=== PATIENT | female | born 1980 | race Native Hawaiian/Other Pacific Islander ===

== ENCOUNTER 2017-03-16 18:52 | Emergency (ER) | payer OTHER ==
[~2017-03-16] VITALS: Ht 154.9 cm; Wt 53.5 kg
[2017-03-16 19:52] LABS: PLATELET COUNT 293 K/uL (152-353)
[2017-03-16 19:59] LABS: POTASSIUM 3.3 mmol/L (3.6-5.2); SODIUM 136 mmol/L (136-145)
[2017-03-16 20:33] VITALS: BP 122/79; TEMP 98.2
== END 2017-03-16 20:35 | disposition home or self-care (01) ==
LOC: ED 18:52
DX: F19.10 Other psychoactive substance abuse, uncomplicated (principal); R10.9 Unspecified abdominal pain
CPT/HCPCS: 80053; 80307; 81000; 85027; 99283; G0479

== ENCOUNTER 2017-03-18 16:23 | Emergency (ER) | payer OTHER ==
[~2017-03-18] VITALS: Ht 154.9 cm; Wt 53.1 kg
[2017-03-18 19:05] VITALS: BP 122/91; TEMP 98.6
== END 2017-03-18 19:05 | disposition home or self-care (01) ==
LOC: ED 16:23
DX: S51.812A Laceration without foreign body of left forearm, initial encounter (principal)
CPT/HCPCS: 99283

== ENCOUNTER 2017-03-21 11:41 | Outpatient (CLI) | payer OTHER | END 2017-03-21 11:45 | disposition short-term general hospital (02) | LOC: AMB 11:41 | DX: R45.851 Suicidal ideations (principal) | CPT/HCPCS: A0425; A0429 ==

== ENCOUNTER 2017-03-21 11:49 | Emergency (ER) | payer OTHER ==
[~2017-03-21] VITALS: Ht 160 cm; Wt 54.4 kg
[2017-03-21 13:21] LABS: PLATELET COUNT 303 K/uL (152-353)
[2017-03-21 13:24] LABS: POTASSIUM 2.8 mmol/L (3.6-5.2); SODIUM 139 mmol/L (136-145)
[2017-03-22 17:27] VITALS: TEMP 98.5
[2017-03-23 11:33] VITALS: BP 122/82
== END 2017-03-23 12:17 | disposition other institution (70) ==
LOC: ED 11:49
DX: R45.851 Suicidal ideations (principal); F32.9 Major depressive disorder, single episode, unspecified; X78.9XXA Intentional self-harm by unspecified sharp object, initial encounter
CPT/HCPCS: 36415; 80053; 80307; 80320; 80329; 81000; 81025; 85027; 96372; 99285; G0479; J2060

== ENCOUNTER 2017-05-17 16:55 | Emergency (ER) | payer OTHER ==
[~2017-05-17] VITALS: Ht 154.9 cm; Wt 58.1 kg
[2017-05-17] MEDS ORDERED: HYDR50CA21 PO (17:12)
[2017-05-17] MEDS ORDERED: AMOXICILLIN250 M2 PO (17:12)
[2017-05-17 17:14] LABS: PLATELET COUNT 257 K/uL (152-353)
[2017-05-17 17:22] LABS: POTASSIUM 3.2 mmol/L (3.6-5.2); SODIUM 142 mmol/L (136-145)
[2017-05-17 22:36] VITALS: BP 129/91; TEMP 98.2
== END 2017-05-17 22:37 ==
LOC: ED 16:55
DX: N39.0 Urinary tract infection, site not specified (principal)
CPT/HCPCS: 36415; 80053; 81000; 85027; 87077; 87086; 87088; 87186; 96374; 99284; J2405; Q9963

== ENCOUNTER 2017-07-13 11:37 | Emergency (ER) | payer OTHER ==
[~2017-07-13] VITALS: Ht 154.9 cm; Wt 56.7 kg
[~2017-07-13 11:37] MED LIST: AMOXICILLIN250 M2 PO; HYDR50CA21 PO
[2017-07-13 11:50] VITALS: BP 145/95; TEMP 97.9
== END 2017-07-13 13:23 | disposition home or self-care (01) ==
LOC: ED 11:37
DX: L02.413 Cutaneous abscess of right upper limb (principal)
CPT/HCPCS: 99282

== ENCOUNTER 2017-09-11 15:01 | Emergency (ER) | payer OTHER ==
[~2017-09-11] VITALS: Ht 157.5 cm; Wt 61.7 kg
[2017-09-11 15:05] VITALS: TEMP 97.9
[2017-09-11 16:30] VITALS: BP 128/88
== END 2017-09-11 16:31 | disposition home or self-care (01) ==
LOC: ED 15:01
DX: L73.2 Hidradenitis suppurativa (principal); N23 Unspecified renal colic
CPT/HCPCS: 81000; 96372; 99283; J0696

== ENCOUNTER 2018-05-03 22:16 | Emergency (ER) | payer OTHER ==
[~2018-05-03] VITALS: Ht 154.9 cm; Wt 68.9 kg
[2018-05-04] VITALS: BP 140/91; TEMP 98.7
== END 2018-05-04 00:02 | disposition home or self-care (01) ==
LOC: ED 22:16
DX: S16.1XXA Strain of muscle, fascia and tendon at neck level, initial encounter (principal); M79.601 Pain in right arm; V40.1XXA Car passenger injured in collision with pedestrian or animal in nontraffic accident, initial encounter
CPT/HCPCS: 96372; 99283; J1885

== ENCOUNTER → 2018-05-03 | Outpatient (CLI) | payer OTHER | END | disposition short-term general hospital (02) | LOC: AMB 21:41 | DX: M54.2 Cervicalgia (principal); M25.511 Pain in right shoulder; V40.0XXA Car driver injured in collision with pedestrian or animal in nontraffic accident, initial encounter; Y92.488 Other paved roadways as the place of occurrence of the external cause | CPT/HCPCS: A0425; A0429 ==

== ENCOUNTER 2019-02-02 21:07 | Emergency (ER) | payer OTHER ==
[~2019-02-02] VITALS: Ht 154.9 cm; Wt 60.8 kg
[2019-02-02 22:29] LABS: PLATELET COUNT 277 K/uL (152-353)
[2019-02-02 22:40] LABS: POTASSIUM 4.2 mmol/L (3.6-5.2); SODIUM 141 mmol/L (136-145)
[2019-02-02 23:48] VITALS: BP 120/88; TEMP 97.5
== END 2019-02-02 23:50 | disposition home or self-care (01) ==
LOC: ED 21:07
PROVIDERS: Internal Medicine
DX: R51 Headache (principal); R07.89 Other chest pain
CPT/HCPCS: 36415; 80053; 82550; 84484; 85027; 93005; 96372; 99283; J2270; J2405

== ENCOUNTER 2019-03-01 18:47 | Observation (INO) | payer OTHER ==
[~2019-03-01] VITALS: Ht 154.9 cm; Wt 60.4 kg
[2019-03-01 19:14] VITALS: BP 106/85; TEMP 98.2
[2019-03-01 19:59] LABS: PLATELET COUNT 397 K/uL (152-353)
[2019-03-01 22:29] VITALS: BP 128/76; TEMP 98.8; Ht 154.9 cm; Wt 60.4 kg
[2019-03-02] VITALS (7 sets, daily range): BP systolic 102–128; BP diastolic 47–85; TEMP 97.5–98.9
[2019-03-02 10:47] LABS: PLATELET COUNT 259 K/uL (152-353)
[2019-03-02] MEDS ORDERED: SEROQUEL25 MG PO (10:55)
[2019-03-02] MEDS ORDERED: TRAMADOL HCL100 MG PO (10:55)
[2019-03-03 04:00] VITALS: BP 109/77; TEMP 98.2
[2019-03-03 05:28] LABS: PLATELET COUNT 259 K/uL (152-353)
[2019-03-03 08:00] VITALS: BP 110/80; TEMP 97.9
[2019-03-03 12:00] VITALS: BP 125/78; TEMP 98.3
== END 2019-03-03 15:40 | disposition home or self-care (01) ==
LOC: ED 18:47 → MED/SURG 21:26
PROVIDERS: Internal Medicine; ADMIT Emergency Medicine
DX: J16.8 Pneumonia due to other specified infectious organisms (principal); E87.6 Hypokalemia; R11.2 Nausea with vomiting, unspecified; R19.7 Diarrhea, unspecified; Z72.0 Tobacco use
CPT/HCPCS: 36415; 80048; 80053; 85007; 85027; 87502; 94664; 94760; 96365; 96366; 96367; 96375; 99220; 99284; G0378; J0696; J1956; J2405

== ENCOUNTER 2020-08-19 15:58 | Emergency (ER) | payer OTHER ==
[~2020-08-19] VITALS: Ht 154.9 cm; Wt 60.3 kg
[~2020-08-19 15:58] MED LIST changes: +SEROQUEL25 MG PO; +TRAMADOL HCL100 MG PO
[2020-08-19 19:10] VITALS: BP 148/100; TEMP 98.3
== END 2020-08-19 19:10 | disposition home or self-care (01) ==
LOC: ED 15:58
PROC: 2W3CX1Z Immobilization of Right Lower Arm using Splint (ICD-10-PCS; principal; 2020-08-19)
DX: S80.02XA Contusion of left knee, initial encounter (principal); I10 Essential (primary) hypertension; F17.210 Nicotine dependence, cigarettes, uncomplicated
CPT/HCPCS: 99283

== ENCOUNTER 2022-04-17 18:22 | Emergency (ER) | payer OTHER | END 2022-04-17 18:50 | disposition home or self-care (01) | LOC: ED 18:22 | DX: Z53.21 Procedure and treatment not carried out due to patient leaving prior to being seen by health care provider (principal) ==

== ENCOUNTER 2022-10-22 10:05 | Emergency (ER) | payer OTHER ==
[~2022-10-22] VITALS: Ht 154.9 cm; Wt 64.9 kg
[2022-10-22 10:33] VITALS: BP 128/86; TEMP 98.1
== END 2022-10-22 12:50 | disposition home or self-care (01) ==
LOC: ED 10:05
DX: R51.9 Headache, unspecified (principal); R53.1 Weakness; R82.5 Elevated urine levels of drugs, medicaments and biological substances
CPT/HCPCS: 80307; 99282

== ENCOUNTER 2022-12-23 15:21 | Emergency (ER) | payer OTHER ==
[~2022-12-23] VITALS: Ht 154.9 cm; Wt 63.5 kg
[2022-12-23 15:21] VITALS: TEMP 98.1
[2022-12-23 15:46] LABS: PLATELET COUNT 260 K/uL (152-353)
[2022-12-23 15:55] LABS: POTASSIUM 3.8 mmol/L (3.6-5.2)
[2022-12-23 17:17] VITALS: BP 140/91
== END 2022-12-23 17:22 | disposition home or self-care (01) ==
LOC: ED 15:21
PROVIDERS: Emergency Medicine
DX: K29.60 Other gastritis without bleeding (principal); F19.10 Other psychoactive substance abuse, uncomplicated
CPT/HCPCS: 36415; 80053; 80307; 81002; 85027; 93005; 96374; 99284; J2405